=== PATIENT | male | born 1975 | race Caucasian/White ===

== ENCOUNTER 2016-11-17 03:21 | Inpatient (IN) | payer SELFPAY ==
--- NOTE | ~2016-11-17 | DS ---
Discharge Summary [facility] [address] [place]. [address] NAME: MARGARET CONWAY : 77 STATUS : DIS IN PAT#: [id number] AGE: 41 ADM/REG DATE : 11/17/16 MR#: [id number] REPORT SERV DATE: 11/19/16 DICTATED BY: ANGI SOLOMON DATE: 11/18/16 REPORT STATUS : Draft TRANSCRIBED BY: MODL DATE: 11/18/16 ADMISSION DATE: 11/17/2016 DISCHARGE DATE: 11/18/2016 This is an addendum to my already done discharge summary from yesterday. ADDENDUM: The patient had delay in discharge given significant continued bleeding from his oral maxillofacial surgery of 13 tooth resection and dissection as a result. I gave the patient IV protamine to reverse any potential Lovenox effect and asked the oral maxillofacial surgeon Dr. eWber to re-evaluate for which injected at the bedside 1:1000 epi with 2% lidocaine. Did re-evaluation at 7 p.m. last night. Hemostasis at that time was maintained. Gave 10 mL of 2% lidocaine with epi infiltration block. The patient's subsequent hemoglobin this morning is 11.5 from 16.3. As a result, I gave IV iron yesterday. Would like the patient to wait till 3 o'clock. Repeat H and H to ensure it is stable. See my prior discharge summary for further details. Dr. Reyes is okay with discharge. All questions were answered, it took over 30 minutes to do. DICTATED BY: DO MARILIN Pulido/ABEBE Angi Solomon DO / [id number] CC: DO Morris Pulido M.D.
--- NOTE | ~2016-11-17 | HP ---
History And Physical [facility] [address] [place]. [address] NAME: MARGARET ROGERS : 77 STATUS : ADM IN [facility]#: [id number] AGE: 41 ADM/REG DATE : 11/17/16 MR#: [id number] REPORT SERV DATE: 11/17/16 DICTATED BY: RAMSES MANRIQUE DATE: 11/17/16 REPORT STATUS : Draft TRANSCRIBED BY: MODL DATE: 11/17/16 DATE OF ADMISSION: 11/17/2016 POINT OF ENTRY: Transfer from [facility] Emergency Department. CHIEF COMPLAINT: Left facial swelling and pain. HISTORY OF PRESENT ILLNESS: Mr. Rogers is a 41-year-old gentleman with no significant previous medical history, who presents to the emergency department today with a two- to three-day history of progressive worsening left facial swelling and pain. The patient reports that he had a dental abscess in the right maxillary region beginning about Saturday. He had some penicillin VK lying around from a previous dental infection and started taking antibiotics for this. The patient states that the right dental abscess spontaneously drained a day or two later, but then he started to develop a dental abscess on the left side with associated left-sided facial swelling. The patient continued to take the penicillin VK and followed up with a dentist on , who then prescribed another course of penicillin VK for the patient. Despite taking penicillin essentially since Saturday, the left facial swelling continued to worsen, prompting his presentation to [facility] Emergency Department on Saturday evening. The patient does report some subjective fevers, but never actually took his temperature. He denies any shortness of breath, stridor, voice changes, trouble swallowing or handling his own secretions. Initial evaluation at [facility] Emergency Department is notable for stable vital signs. Initial bedside attempt at drainage of the presumed periapical abscess was unremarkable, as the swelling continued to worsen. However, the ER physician was able to drain a fair amount of purulent-appearing material. CT scan of the maxillofacial showed a 1.6 cm subperiosteal abscess with associated left facial swelling and cellulitis. It is adjacent to the left anterior maxillary region. There is also some periapical abscess as well as left maxillary sinus opacification. The patient was given a dose of IV Unasyn and subsequently transferred to [facility] for high level of care for evaluation by head grinder. COMPREHENSIVE REVIEW OF SYSTEMS: Otherwise negative unless listed in history of present illness. PREVIOUS MEDICAL HISTORY: Active tobacco abuse. SURGICAL HISTORY: None. ALLERGIES: NONE. HOME MEDICATIONS: No home prescription medications other than the penicillin VK prescribed by the dentist. SOCIAL HISTORY: This patient does smoke about a half pack to one pack per day. Denies any History And Physical [address] [address] NAME: MARGARET ROGERS : [birth year] STATUS : ADM IN [facility]#: [id number] AGE: 41 ADM/REG DATE : 11/17/16 MR#: [id number] REPORT SERV DATE: 11/17/16 DICTATED BY: RAMSES MANRIQUE DATE: 11/17/16 REPORT STATUS : Draft TRANSCRIBED BY: ABEBE DATE: 11/17/16 alcohol or illicits. 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 FAMILY MEDICAL HISTORY: Mother is healthy. Father with Parkinson's disease. Siblings healthy. LABS AND IMAGING: All obtained from transfer records from [facility] Emergency Department. 1. White count is 9.4, hemoglobin is 18.5, hematocrit is 51.5, platelet count is 281. 2. Sodium is 137, potassium 4.3, chloride 104, carbon dioxide 23, BUN 17, creatinine 1.0, glucose is 110, calcium is 9.1. 3. CT scan of the maxillofacial with IV contrast showed subperiosteal abscess with left facial soft tissue swelling. It is adjacent to the left anterior maxillary region with periapical abscess, left maxillary sinus opacification. 4. CT scan of the neck is unremarkable. PHYSICAL EXAMINATION: VITAL SIGNS: Temperature is 98.2 degrees Fahrenheit, pulse is 86, respirations 16, saturating 96% on room air, blood pressure 158/93. GENERAL: The patient is awake, alert, in no acute distress, resting comfortably in bed. He is a well-developed, well-nourished male. HEENT: Atraumatic and normocephalic. There is some obvious facial swelling of the left maxillary region. I do not appreciate any palpable fluid collections or purulence. The swelling extends to the infraorbital region. Moist mucous membranes. No obvious dental caries, but evidence of prior dental work. No obvious purulent drainage in the oropharyngeal region at this time. NECK: No jugular venous distention or carotid bruits. CARDIAC: Regular rate and rhythm. No murmurs or gallops. Normal S1 and S2. LUNGS: Clear to auscultation bilaterally. No wheezes, rhonchi, or crackles. ABDOMEN: Soft, nontender, nondistended. Good bowel sounds. No rebound, guarding, or rigidity. EXTREMITIES: Warm and well perfused. No cyanosis, clubbing, or edema. SKIN: Warm and dry. PSYCH: Affect appropriate. NEURO: Alert and oriented x3. Cranial nerves 2 through 12 grossly intact. Speech is normal. Gait not assessed. ASSESSMENT AND PLAN: Mr. Rogers is a 41-year-old gentleman, who presents with a few-day history of left facial swelling and pain, and found to have evidence of subperiosteal abscess with associated facial cellulitis. PROBLEM LIST: 1. Left maxillary abscess with facial cellulitis. 2. Erythrocytosis. 3. Hypertension. 4. Active tobacco abuse. PLAN: History And Physical [address] [address] NAME: MARGARET ROGERS : 77 STATUS : ADM IN [facility]#: [id number] AGE: 41 ADM/REG DATE : 11/17/16 MR#: [id number] REPORT SERV DATE: 11/17/16 DICTATED BY: RAMSES MANRIQUE DATE: 11/17/16 REPORT STATUS : Draft TRANSCRIBED BY: ABEBE DATE: 11/17/16 1. Left maxillary abscess with facial cellulitis. Continue IV Unasyn. We will consult operations officer trust department for surgical intervention. We will keep the patient nothing by mouth in anticipation of surgery today. 2. Active tobacco abuse. Nicotine replacement protocol. 3. Hypertension. IV hydralazine p.r.n. for elevated blood pressure. 4. Erythrocytosis likely secondary to the patient's history of tobacco use. He has received IV fluid hydration in the ER. We will continue that and follow up repeat CBC in the morning. 5. DVT prophylaxis. Lovenox subcu. CODE STATUS: The patient wished to be full code. JIM/ABEBE Ramses Manrique MD / [id number] CC: DO Morris Pulido M.D.
--- NOTE | ~2016-11-17 | DS ---
Discharge Summary [facility] [address] [place]. [address] NAME: MARGARET CONWAY : 77 STATUS : ADM IN [facility]#: [id number] AGE: 41 ADM/REG DATE : 11/17/16 MR#: [id number] REPORT SERV DATE: 11/18/16 DICTATED BY: ANGI SOLOMON DATE: 11/17/16 REPORT STATUS : Draft TRANSCRIBED BY: MODL DATE: 11/17/16 ADMISSION DATE: 11/17/2016 DISCHARGE DATE: 11/17/2016 HISTORY OF PRESENT ILLNESS: This is a 41-year-old, male with known history of a root canal well over a year ago who came in from [facility] to transfer, left facial swelling and pain. The patient took some penicillin that he had lying around from previous dental infection for his left-sided facial pain that then worsened. At [facility], he had a presumed periapical abscess unremarkable, swelling worse. CT showed 1.6 cm subperiosteal abscess associated with left facial swelling and cellulitis adjacent to left anterior maxillary region, given IV Unasyn, sent over here for OMFS Surgery. The patient was seen by oral maxillofacial surgery for which the patient had tooth #13 surgically removed with pus expressed direct through the socket, blunt dissection, copious amounts of irrigation, hemostasis at that time maintained. Recommend okay with discharge home after the next IV antibiotics, discharge on p.o. antibiotics followup. The patient is still having some mild bleeding. We will give him iron, IV iron dextran 250 mL out with water from the anchor, needs to maintain hemostasis, get IV iron and Unasyn before being discharged. If that cannot occur, he will need to stay over. As a result, discharge medicine include nicotine transdermal patch 14 mg patch daily; Levaquin and Flagyl, Levaquin 750 p.o. daily for 13 more days, Flagyl 500 p.o. t.i.d. for 13 more days; [place] 5/325 p.o. t.i.d. p.r.n. pain. The patient has history of hypertension at age of 41, needs to see a good PCP. I am going to start him on HCTZ 12.5 p.o. daily. The patient's blood pressures were checked as an outpatient to determine if this is related to pain. However, the patient had a concern for history hypertension in the past. CONSULTS: [facility]. PROCEDURE: See above. FOLLOWUP: Follow up with [facility] in 1-2 weeks. PCP in two weeks. DISCHARGE DIAGNOSES: Cellulitis, tooth #13 abscess, acute blood loss anemia. Anemia to be determined on next H and H draw, objective from the amount of blood loss. Initially had erythrocytosis, possibly due to smoking. Would repeat as an outpatient escalate despite smoking cessation. Consider JAK2 mutation. Rule out polycythemia. Hypertension. All questions were answered. It took well over 30 minutes to do. DICTATED BY: Angi Solomon DO Discharge Summary [address] [address] NAME: MARGARET CONWAY : 77 STATUS : ADM IN [facility]#: [id number] AGE: 41 ADM/REG DATE : 11/17/16 MR#: [id number] REPORT SERV DATE: 11/18/16 DICTATED BY: ANGI SOLOMON DATE: 11/17/16 REPORT STATUS : Draft TRANSCRIBED BY: MODNaresh DATE: 11/17/16 WST/ABEBE Angi Solomon DO / [id number] CC: DO Morris Pulido M.D.
[2016-11-17 06:33] LABS: BASOPHILS 0.6 %; BASOPHILS ABSOLUTE 0.04 10/3/uL (0.0-0.16); EOSINOPHILS 1.1 %; EOSINOPHILS ABSOLUTE 0.08 10/3/uL (0.0-0.53); HEMATOCRIT 45.6 % (40.0-51.0); HEMOGLOBIN 16.3 g/dL (13.6-17.8); IMMATURE GRANULOCYTES 0.1 %; IMMATURE GRANULOCYTES ABSOLUTE 0.01 10/3/uL (0.0-0.11); LYMPHOCYTES 32.3 %; LYMPHOCYTES ABSOLUTE 2.25 10/3/uL (0.67-4.30); MANUAL DIFF NO %; MEAN CORPUS HGB CONC 35.7 g/dL (32.0-36.0); MEAN CORPUSCULAR HEMOGLOB 31.8 pg (26.0-34.0); MEAN CORPUSCULAR VOLUME 89.1 fL (80-100); MEAN PLATELET VOLUME 10.2 fL (9.2-13.0); MONOCYTES 12.6 %; MONOCYTES ABSOLUTE 0.88 10/3/uL (0.21-1.20); NEUTROPHILS 53.3 %; PLATELET COUNT 248 10/3/uL (150-400); RBC DISTRIBUTION WIDTH 13.1 % (12.0-16.0); RED CELL COUNT 5.12 10/6/uL (4.7-6.1)
[2016-11-17 06:40] LABS: BUN (BLOOD UREA NITROGEN) 12 MG/DL (6-23); CALCIUM, SERUM 8.1 MG/DL (8.5-10.4); CHLORIDE, SERUM 109 MMOL/L (96-112); CO2 (CARBON DIOXIDE) 22 MMOL/L (24-34); CREATININE 0.67 MG/DL (0.70-1.30); GFR AFRICAN AMERICAN 139 ML/MIN (>=60); GFR NON AFRICAN AMERICAN 120 ML/MIN (>=60); GLUCOSE, SERUM 128 MG/DL (60-99); POTASSIUM, SERUM 3.9 MMOL/L (3.5-5.3); SODIUM, SERUM 139 MMOL/L (135-148)
[2016-11-17] MEDS ORDERED: NO HOME MEDS (11:54)
[2016-11-17] MEDS ORDERED: *DENIES (11:56)
[2016-11-17 21:12] LABS: HEMATOCRIT 41.5 % (40.0-51.0); HEMOGLOBIN 14.5 g/dL (13.6-17.8)
[2016-11-18 07:19] LABS: BUN (BLOOD UREA NITROGEN) 9 MG/DL (6-23); CALCIUM, SERUM 7.7 MG/DL (8.5-10.4); CHLORIDE, SERUM 109 MMOL/L (96-112); CO2 (CARBON DIOXIDE) 25 MMOL/L (24-34); GFR AFRICAN AMERICAN 137 ML/MIN (>=60); GFR NON AFRICAN AMERICAN 118 ML/MIN (>=60); GLUCOSE, SERUM 116 MG/DL (60-99); PHOSPHORUS, SERUM 2.4 MG/DL (2.5-4.5); POTASSIUM, SERUM 3.9 MMOL/L (3.5-5.3); SODIUM, SERUM 140 MMOL/L (135-148)
[2016-11-18 08:07] LABS: BASOPHILS 0.6 %; BASOPHILS ABSOLUTE 0.03 10/3/uL (0.0-0.16); EOSINOPHILS 3.9 %; EOSINOPHILS ABSOLUTE 0.19 10/3/uL (0.0-0.53); IMMATURE GRANULOCYTES 0.2 %; IMMATURE GRANULOCYTES ABSOLUTE 0.01 10/3/uL (0.0-0.11); LYMPHOCYTES 46.8 %; MEAN CORPUS HGB CONC 35.2 g/dL (32.0-36.0); MEAN CORPUSCULAR HEMOGLOB 31.3 pg (26.0-34.0); MEAN CORPUSCULAR VOLUME 89.1 fL (80-100); MEAN PLATELET VOLUME 10.1 fL (9.2-13.0); MONOCYTES ABSOLUTE 0.54 10/3/uL (0.21-1.20); NEUTROPHILS 37.5 %; NEUTROPHILS ABSOLUTE 1.84 10/3/uL (2.02-8.40); PLATELET COUNT 253 10/3/uL (150-400); RBC DISTRIBUTION WIDTH 12.9 % (12.0-16.0); WHITE BLOOD CELLS 4.9 10/3/uL (4.5-10.5)
[2016-11-18 08:08] LABS: HEMOGLOBIN 11.5 g/dL (13.6-17.8); RED CELL COUNT 3.67 10/6/uL (4.7-6.1)
[2016-11-18 08:09] LABS: HEMATOCRIT 32.7 % (40.0-51.0); MANUAL DIFF NO %
[2016-11-18] MEDS ORDERED: HABIT14 TOP (15:04)
[2016-11-18] MEDS ORDERED: FLAG500TAB PO (15:06)
[2016-11-18] MEDS ORDERED: LEVAQUIN750 MG PO (15:06)
[2016-11-18] MEDS ORDERED: NORCO1 TA1 PO (15:07)
[2016-11-18] MEDS ORDERED: HYDROCHLOROT12.5 MG PO (15:07)
[2016-11-18 15:09] LABS: HEMATOCRIT 34.6 % (40.0-51.0)
== END 2016-11-18 16:30 | disposition home or self-care (01) | DRG 158 ==
LOC: 5SO 03:21
PROVIDERS: Internal Medicine
PROC: 0CTW0Z0 Resection of Upper Tooth, Single, Open Approach (ICD-10-PCS; principal; 2016-11-17)
DX: K04.7 Periapical abscess without sinus (principal); D62 Acute posthemorrhagic anemia; I10 Essential (primary) hypertension; L03.211 Cellulitis of face; F17.210 Nicotine dependence, cigarettes, uncomplicated
CPT/HCPCS: 36415; 80048; 82962; 83735; 84100; 85014; 85018; 85025; 86850; 86900; 86901; A9270-GY; J0295; J1170; J1750; J2720